=== PATIENT | male | born 1980 | race African-American/Black ===

== ENCOUNTER 2024-02-01 15:31 | Emergency (ER) | payer OTHER, SELFPAY ==
[2024-02-01 15:45] VITALS: BP 125/77
[2024-02-01 16:15] LABS: % Basophils 0.7 % (0-2); % Eosinophils 2.2 % (0-6); % Immature Granulocytes 0.3 % (0-0.5); % Lymphocytes 28.9 % (20.5-51.1); % Monocytes 7.5 % (1.7-9.3); % Neutrophils 60.4 % (42.2-75.2); Absolute Basophils 0.1 10^3/uL (0-0.2); Absolute Eosinophils 0.2 10^3/uL (0-0.7); Absolute Lymphocytes 1.9 10^3/uL (1.2-3.4); Absolute Monocytes 0.5 10^3/uL (0.1-0.6); Absolute Neutrophils 4.1 10^3/uL (1.4-6.5); Hematocrit 44.4 % (39.0-52.0); Hemoglobin 14.9 g/dL (13.0-18.0); Mean Corp Hgb Conc. 33.6 g/dL (33.0-37.0); Mean Corpuscular Hgb 28.9 pg (27.0-31.0); Mean Platelet Volume 10.9 fL (7.4-10.4); Nucleated Red Blood Cells % 0 % (-); Platelet Count 267 10^3/uL (130-400); Red Blood Cell Count 5.16 10^6/uL (4.70-6.10); Red Cell Dist. Width 12.1 % (11.5-14.5); White Blood Cell Count 6.7 10^3/uL (4.8-10.8)
[2024-02-01 16:29] LABS: ALT (SGPT) 41 U/L (0-50); AST (SGOT) 31 U/L (17-59); Albumin 4.5 g/dl (3.5-5.0); Alkaline Phosphatase 68 U/L (38-126); Blood Urea Nitrogen 14 mg/dl (9-20); Calcium 9.5 mg/dl (8.4-10.2); Carbon Dioxide 25 mmol/L (22-30); Chloride 103 mmol/L (98-107); Glucose 94 mg/dl (70-99); Potassium 4.2 mmol/L (3.5-5.1); Sodium 140 mmol/L (135-145); Total Bilirubin 0.9 mg/dl (0.2-1.3); Total Protein 7.3 g/dl (6.3-8.2); eGFR > 60.00
[2024-02-01 16:39] LABS: Troponin I < 0.012 ng/ml
--- NOTE | 2024-02-01 18:02 | ED.GENMED ---
History of Present Illness
<Erika Stein PA-C - Last Filed: 02/01/24 20:23>
General
Chief Complaint: Chest Pain
Source: patient
Exam Limitations: none
Time Seen by Provider: 02/01/24 17:41
Nursing documentation reviewed up to this point in time: agreed with
History of Present Illness
History of Present Illness:
43-year-old male with no past medical history presents emergency department today with concerns of substernal exertional chest pain for the past 2 days. At rest, he typically does not have the pain and will only notice it when he is playing soccer.
Of note, patient reports that around 2005 and then again in 2008, he had 2 episodes where when he was on the soccer field, he did have exertional chest pain and had a syncopal episode in which he subsequently went into an abnormal heart rhythm. He
states that he does not see a boiler fitter. He is unsure what condition he had at this time. He also states that for the past few days he has had associated fatigue, intermittent numbness and tingling in his arms and legs. He denies any recent
vaccinations. He also gets intermittent headaches. Patient denies upper respiratory symptoms, cough. Patient states that sometimes he will get hit in the chest during soccer but denies severe trauma to the chest
Review of Systems
<Erika Stein PA-C - Last Filed: 02/01/24 20:23>
Review of Systems
All Other Systems: ROS reviewed and negative except as documented in HPI and ROS
Phy Exam
<Erika Stein PA-C - Last Filed: 02/01/24 20:23>
Physical Exam
Physical Exam:
General: Patient is well appearing and in no acute distress; non-toxic
Skin: Warm and dry, no rashes or lesions
Head: Normocephalic, atraumatic
Eyes: Sclera non-icteric. EOMs intact. PERRLA.
Cardiac: Regular rate and rhythm, no murmurs, no tenderness palpation of sternal
Peripheral Vascular: No lower extremity swelling or edema
Pulm: Normal respiratory effort, no wheezes, rales, rhonchi
Neuro: CN II-XII intact, no focal neurologic deficits.
Psychiatric: Appropriate mood and affect.
Scores
<Erika Stein PA-C - Last Filed: 02/01/24 20:23>
Heart Score for Chest Pain Patients
STEMI patient?: No
History: Slightly or Non-Suspicious
ECG: Normal
Age: </= 45 years
Risk Factors: No Risk Factors
Troponin: </= Normal Limit
Heart Score for Chest Pain Patients: 0
Heart Score Risk: 2.5% MACE over next 6 weeks
Course
<FOSTER Stoddard Last Filed: 02/01/24 20:23>
Orders/Labs/Results
Orders:
Orders
02/01/24 15:32
ECG [Electrocardiogram (*1)] Urgent
Reason for Study: Chest Pain
EKG- Treatment ONCE
02/01/24 15:50
ECG [Electrocardiogram (*1)] Urgent
Reason for Study: Chest Pain
02/01/24 16:05
Complete Blood Count/With Diff Urgent
Comprehensive Metabolic Panel Urgent
Troponin I Urgent
02/01/24 18:22
CR Chest - 2 Views Urgent
Comment:
Reason For Exam: chest pain
02/01/24 18:24
Ketorolac [Toradol] 15 mg IV NOW STA
02/01/24 18:39
COVID-19 Antigen Urgent
Source: Nasal Swab
02/01/24 18:48
Cardiac Monitoring- Treatment ONCE
Abnormal Lab Results
02/01/24
16:05
MPV 10.9 H fL
(7.4-10.4)
02/01/24 16:05
02/01/24 16:05
Vital Signs
Initial and Last Documented VS:
Initial Vital Signs
Temp Pulse Resp BP Pulse Ox
98.9 F 76 16 125/77 96
02/01/24 15:45 02/01/24 15:45 02/01/24 15:45 02/01/24 15:45 02/01/24 15:45
Last Documented Vital Signs
Temp Pulse Resp BP Pulse Ox
98.9 F 64 26 128/68 96
02/01/24 15:45 02/01/24 19:15 02/01/24 19:15 02/01/24 19:00 02/01/24 19:15
<Darrick Fajardo, DO - Last Filed: 02/01/24 19:16>
Orders/Labs/Results
Orders:
Orders
02/01/24 15:32
ECG [Electrocardiogram (*1)] Urgent
Reason for Study: Chest Pain
EKG- Treatment ONCE
02/01/24 15:50
ECG [Electrocardiogram (*1)] Urgent
Reason for Study: Chest Pain
02/01/24 16:05
Complete Blood Count/With Diff Urgent
Comprehensive Metabolic Panel Urgent
Troponin I Urgent
02/01/24 18:22
CR Chest - 2 Views Urgent
Comment:
Reason For Exam: chest pain
02/01/24 18:24
Ketorolac [Toradol] 15 mg IV NOW STA
02/01/24 18:39
COVID-19 Antigen Urgent
Source: Nasal Swab
02/01/24 18:48
Cardiac Monitoring- Treatment ONCE
Abnormal Lab Results
02/01/24
16:05
MPV 10.9 H fL
(7.4-10.4)
02/01/24 16:05
02/01/24 16:05
Vital Signs
Initial and Last Documented VS:
Initial Vital Signs
Temp Pulse Resp BP Pulse Ox
98.9 F 76 16 125/77 96
02/01/24 15:45 02/01/24 15:45 02/01/24 15:45 02/01/24 15:45 02/01/24 15:45
Last Documented Vital Signs
Temp Pulse Resp BP Pulse Ox
98.9 F 64 26 128/68 96
02/01/24 15:45 02/01/24 19:15 02/01/24 19:15 02/01/24 19:00 02/01/24 19:15
<Erika Stein PA-C - Last Filed: 02/01/24 20:23>
MDM/Problems Addressed
Differential Diagnosis Includes:
Differentials include costochondritis, ACS, GERD, pneumothorax
MDM/Problems Addressed:
43-year-old male presents emergency department today with few days of exertional chest pain, fatigue. He also has bilateral upper and lower extremity paresthesias. Patient has no family history of cardiac disease. Here in emergency department, he
is well-appearing, his EKG shows no ischemic changes, his troponin is undetectable, and his chest x-ray shows no abnormalities. Chest pain at this time etiology remains unclear, however considering patient's exertional symptoms, patient will need a
stress test in the future. Did advise patient to stop his soccer playing until he is evaluated by boiler fitter. He had no abnormal rhythm on the monitor while here in the emergency department did have questionable episode of cardiac event or
arrhythmia over 10 years ago, patient is unsure what this was but I do not think he needs to be admitted for observation today patient also concerned by his ongoing fatigue, advised patient to follow-up with his primary care provider to address this
issue. Patient stable for discharge.
Chronic conditions affecting care:
n/a
Acute Exacerbation and/or Progression of Chronic Illness:
n/a
<Erika Stein PA-C - Last Filed: 02/01/24 20:23>
*Pulse Oximetry
Patient hypoxic: no
*EKG
Interpreted by ED Provider?: Yes
EKG Intrepretation Date: 02/01/24
Interpretation: abnormal
Comparison EKG: no changes (No changes noted, nonspecific T wave abnormal)
Heart Rate: 70
Rate: normal
Rhythm: sinus
[place]: normal axis
Interval: normal interval and normal QT interval
QRS Pattern: normal QRS
Ischemia: no ischemia
*Critical Care Note
Total Time (30-74mins, 75-104mins- exclusive of procedures): Not Applicable
Data Reviewed
Review of Other/Old Records Reveals: Records (No previous ER physician documentation to review) and Discharge Summary (No previous discharge summaries to review)
Source: patient and records
Prescriptions/Medications Considered But Not Given:
n/a
Further Testing Considered But Not Given:
n/a
ED Attending Note
<Erika Stein PA-C - Last Filed: 02/01/24 20:23>
-
Portions of this chart may have been created with voice recognition software.� Occasional wrong word or��sound alike� substitutions may have occurred due to the inherent limitations of voice recognition software.
<Darrick Fajardo DO - Last Filed: 02/01/24 19:16>
ED Attending Note
Patient seen and examined by attending physician: Yes
I performed the substantive portion of visit, reviewed & personally made and approve the management plan that is documented in note by myself or [place].: Yes
I performed a history and physical exam of patient and discussed management with resident, I reviewed resident's note and agree with documented findings and plan of care.: Yes
ED Attending Note:
I evaluated the patient at bedside. He is very well-appearing. He has no significant past medical history but did have some chest discomfort that was at its worst yesterday. His EKG and troponin today are normal. He had virtually no symptoms of
chest discomfort today. Chest x-ray unremarkable. To see boiler fitter as outpatient urgently.
Discharge Plan
Departure
Patient Disposition: Home (Routine Discharge)
Date of Disposition: 02/01/24
Time of Disposition: 19:16
Patient with high blood pressure during this ER visit?: Yes
Condition: Good
Discharge Problem:
Chest pain
Instructions: Chest Pain [facility] Follow Up, BLOOD PRESSURE
Referrals:
Delia Olivas MD [Family Provider] -
Activity Restrictions/Additional Instructions:
Please return emergency department should you experience acute worsening of your symptoms, shortness of breath, facial droop, difficulty speaking, difficulty swallowing, fainting spells, or any other signs or symptoms concerning to you.
Please follow-up with your primary care provider.
You should receive a call to schedule an appointment with cardiology. Should you not receive a call, please call the attached number to schedule appointment. You will likely need stress test.
Interventions
Interventions:
*Risk Screen - Suicide Last Done: 02/01/24 18:12
*General Assessment Last Done: 02/01/24 18:12
*Neglect/Abuse Screening Last Done: 02/01/24 18:12
ED- Fall Risk Assessment Last Done: 02/01/24 18:12
*ED COVID-19 Vaccine History Last Done: 02/01/24 18:12
*Nursing Disposition Last Done: 02/01/24 19:25
ED- Cardiac Assessment Last Done: 02/01/24 18:12
Discharge Date and Time
Discharge Date/Time: 02/01/24 19:40
Print Language: DIVEHI
[2024-02-01] MEDS: TORADOL 15 MG IV (18:39)
[2024-02-01 18:58] VITALS: BP 133/66
[2024-02-01 19:00] VITALS: BP 128/68
[2024-02-01 19:04] LABS: COVID-19 Antigen Negative (Negative)
== END 2024-02-01 19:40 | disposition home or self-care (01) ==
LOC: EMR 15:31
PROVIDERS: Physician Assistant; Student in an Organized Health Care Education/Training Program; EMERGENCY PHYSICIAN Emergency Medicine; FAMILY PHYSICIAN Family Medicine
DX: R07.89 Other chest pain (principal); R53.83 Other fatigue; R20.2 Paresthesia of skin; R51.9 Headache, unspecified; Z11.52 Encounter for screening for COVID-19; R03.0 Elevated blood-pressure reading, without diagnosis of hypertension
CPT/HCPCS: 99284; 96374; 71046; 80053; 84484; 85025; 87811; 93005